=== PATIENT | male | born 1950 | race Caucasian/White ===

== ENCOUNTER 2025-02-06 19:44 | Emergency (ER) | payer MEDICARE, BC ==
[~2025-02-06] VITALS: Ht 185.4 cm; Wt 99.2 kg
[2025-02-06 19:49] VITALS: TEMP 36.9; O2SAT 99
[2025-02-06] MEDS: NA PHOS,M-B/NA PHOS,DI-BA ENEMA 118ML PR ONE (20:00)
[2025-02-06 20:50] LABS: HEMATOCRIT. 42.1 % (42.0-52.0); HEMOGLOBIN. 14.0 g/dL (14.0-18.0); MEAN PLATELET VOLUME 9.3 fl (7.4-10.4); PLATELET 215 x1000/uL (130-400); RED BLOOD CELL COUNT 4.72 mill/uL (4.7-6.1); RED CELL DISTRIBUTION WIDTH 14.7 % (11.6-14.6)
[2025-02-06 21:02] LABS: INR 1.0
[2025-02-06 21:05] LABS: CREATININE 1.2 mg/dL (0.6-1.3); UREA NITROGEN BLOOD 20 mg/dL (9-23)
[2025-02-06 21:07] LABS: ASPARTATE AMINOTRANSFERASE 24 IU/L (<34); BILIRUBIN DIRECT 0.4 mg/dL (<=3.0); BILIRUBIN TOTAL 1.2 mg/dL (0.1-1.0); PROTEIN TOTAL 6.2 g/dL (6.0-8.3)
[2025-02-06] MEDS ORDERED: POLY17PO3 MT (21:09)
[2025-02-06 21:16] LABS: LYMPHOCYTES % MANUAL 4.0 % (20.0-50.0); MONOCYTES % MANUAL 4.0 % (2.0-8.0); NEUTROPHILS % MANUAL 92.0 % (45.0-75.0); PLATELET ESTIMATE NORMAL
[2025-02-06 21:53] VITALS: BP 133/80; PULSE 93; RESP 18; O2SAT 100
== END 2025-02-06 21:55 | disposition home or self-care (01) ==
LOC: ER 19:44 → CMPBEDREQ 02-07 07:34
DX: K59.00 Constipation, unspecified (principal); Z98.890 Other specified postprocedural states
CPT/HCPCS: 36415; 74176; 80048; 80076; 85025; 86850; 86900; 99284